=== PATIENT | female | born 1955 | race Caucasian/White ===

== ENCOUNTER → 2016-06-16 | Outpatient (CLI) | payer MEDICARE ==
[~2016-06-16] MED LIST: ASPIRIN EC81 MG PO; CATAFLAM50 MG PO; DELTASONE5 MG PO; DIFLUCAN150 MG PO; FAMOTIDINE 20MG20 MG PO; FLEXERIL10 MG PO; GABAPENTIN300 M1 PO; GABAPENTIN300 MG PO; HYDROCODONE BIT1 T45 PO; HYDROXYZINE HCL25 M1 PO; IBU-8800 MG PO; KEFLEX 500MG.500 MG PO; KLONOPIN 0.5MG0.5 MG PO; LEXAPRO 10 MG T10 MG PO; MEDROL 4MG. DOSE4 MG PO; Mobic7.5 MG PO; NEURONTIN 100100 MG PO; NEURONTIN600 MG PO; NICOTINE PATCH;21 MG TD; NORCO 325 MG-51 TAB PO; PHENYTOIN100 MG PO; PREDNISONE 20MG20 MG PO; TRAMADOL 50MG T50 M1 PO; TRAZADONE HYDR100 MG PO; TYLENOL WITH CO1 TA1 PO; ULTRAM50 MG PO; VISTARIL25 M1 PO; XANAX 1MG TABLET1 MG PO; ZANAFLEX2 M1 PO
[2016-06-16 15:50] LABS: AMPHETAMINES/METAMPHETAMINES NEGATIVE ng/mL (<1000)
[2016-06-24 07:41] LABS: Alprazolam Negative (Cutoff=100); Benzodiazepines Negative ng/mL (Cutoff=100); Clonazepam Negative (Cutoff=100); Flurazepam Negative (Cutoff=100); Lorazepam Negative (Cutoff=100); Midazolam Negative (Cutoff=100); Temazepam Negative (Cutoff=100); Triazolam Negative (Cutoff=100)
== END ==
LOC: LAB 14:05
PROVIDERS: Emergency Medicine
DX: Z79.899 Other long term (current) drug therapy (principal)
CPT/HCPCS: G0480

== ENCOUNTER 2017-01-06 09:24 | Emergency (ER) | payer MEDICARE ==
[~2017-01-06] VITALS: Ht 157.5 cm; Wt 49.0 kg
--- NOTE | 2017-01-06 09:39 | Emergency Room Report ---
History of Present Illness Time Seen by [id number] Presenting Problem in Triage Pt arrived:Walked Presenting Problem:WENT TO SEE PCP FOR ROUTINE VISIT FOR PRESCRIPTIONS; DURING VITAL SIGNS THEY SAID HEART RATE WAS 150; PT HAS A HISTORY OF CHRONIC NECK AND BACK DISCOMFORT; STATES IS A LITTLE SOA BUT IS A SMOKER Onset of symptoms date/time:/ or onset unknown for:MEDICAL HX UNKNOWN Treatment Prior to Arrival: SENT TO ED FOR R/O PEDIATRIC CNS Provided by:PHYSICIAN Sepsis Risk Assessment: Temp: 97.3 B/P: MAP: Pulse: 134 Resp: 22 Recent fever? N Clinical Suspician of Infection? N Mental Status: 1 - Regular (Normal Baseline) Sepsis Risk:Possible Sepsis Risk Have you (or family members/close friends) recently traveled outside the [place]? N If Yes, where/when: Have you had exposure to infectious disease within the past month? TB? Other? Specify: Comment The patient is sent from Dr. Pettit's office for rapid heart rate. She was there today to get refills on her medications. She states that she has had nausea for about 3 months. Poor appetite. She has chest heaviness which comes and goes, currently present. She says she has been short of breath for about 2 months. She has chronic neck and back pain and states that this causes her anxiety. She says that she was previously in pain management, but she says she stopped going to try and see if she could do without pain medication. She says she would like to have her pain medication back, she says she was on [place]. She says she was told maybe we could do that in the emergency room for her. She denies taking any excessive medication. She denies street drug use. She says she drinks alcohol, "but not enough to hurt me". She says she last drank yesterday. ALLERGIES Coded Allergies: No Known Drug Allergies (01/06/17) Home Medications Active Scripts Gabapentin 300 MG PO QID #120 TAB Ref 3 Prov: 03/29/15 TIZANIDINE HCL (Zanaflex) 2 MG PO TID #90 CAP Ref 2 Prov: 06/10/15 Reported Medications Escitalopram Oxalate (Lexapro 10MG) 10 MG PO DAILY History Medical History General CAD? No Angina: No [place]: No Hypertension? No Hyperlipidemia? No CHF? No DVT? No PE? No COPD? No Asthma? No Anemia? No GERD? No Gastric ulcers? No GI Bleed? No Hernia? No Thyroid Problems? No Hypothyroidism? No CVA? No Seizures? Yes Diabetes? No Insulin Dependent: No Insulin Pump: No Home FSBS? No Renal Insuffiency? No End Stage Renal Disease? No UTI? No Stones? No BPH? No GB Disease: No Nephritic Syndrome? No Asplenia? No Hepatitis? No Sickle Cell Disease? No Arthritis? Yes Migraines? No Cataracts? No Glaucoma? No MRSA? No HIV? No TB? No Anxiety? Yes Depression? No Cancer? No More? Yes Additional hx: COLLAPSED LUNG Immunization Hx Ped.Immunizations UTD Yes DT/Tetanus 5-10 Years Ago Flu [id number] Flu Season Pneumonia Received In Past Surgical Hx Previous Surgery?Y THORACOTOMY L LUNG D & C HYSTERECTOMY ECTOPIC PREG LEADITE MAN Hx LMP N/A Family History Family Hx Diabetes No CAD No Hypertension No Hyperlipidemia No Cancer No TB No Social History Smoking Hx Smoker: Current Every Day Smoker Tobacco: Yes Type Cigarettes Packs/day < 1 Pack Alcohol Alcohol: No Review of Systems All Other Systems Reviewed and Negative Constitutional see HPI, denies fever Respiratory shortness of breath Cardiovascular chest pain (Heaviness) Gastrointestinal see HPI, diarrhea, vomiting Musculoskeletal back pain, neck pain Psychiatric/Neurological anxiety Physical Exam Vital Signs Vital Signs Date Time Temp Pulse Resp B/P Pulse O2 O2 Flow FiO2 Ox Delivery Rate 01/06 1135 97.3 101 20 142/75 94 01/06 1031 101 20 159/92 94 01/06 0928 97.3 134 22 138/95 96 General Appearance no apparent distress, anxious appearing Eye Exam - bilateral eye normal exam, bilateral eye PERRL, bilateral eye EOMI Ear, Nose, Throat hearing grossly normal, normal ENT inspection Neck full range of motion, no thyromegaly Respiratory Status Yes: trachea midline, chest symmetrical. No: respiratory distress. Lung Sounds bilateral: normal breath sounds, lungs clear. Cardiovascular no peripheral edema, no gallop, no JVD, no murmur, no rub, normal peripheral pulses, tachycardia Peripheral Pulses Pulses normal Yes Gastrointestinal normal bowel sounds, normal exam, non tender, soft, no organomegaly Back normal inspection Extremities non-tender, normal range of motion, normal inspection, no calf tenderness, no pedal edema Neurologic alert, informatics manager II-XII nml as tested, normal exam, no motor/sensory deficits, oriented x 3 Skin intact, normal color, warm/dry Medical Decision Making LABS/Meds/Orders Pt receiving controlled substance in ED? No [place] was queried for this patient? Yes Comment [id number] 20 rxs. last rx gabapentin on 01/04/17, 8 tablets. Results/Orders Laboratory Tests 01/06/17 1103: Opiates Screen NEGATIVE, Urine Methadone Screen NEGATIVE, Barbiturates NEGATIVE, Phencyclidine Screen NEGATIVE, Amphetamines Screen NEGATIVE, Benzodiazepines Screen NEGATIVE, Cocaine Screen NEGATIVE, Marijuana (THC) Screen NEGATIVE, Urine Color YELLOW, Urine Appearance CLEAR, Urine pH 6.0, Ur Specific [place] <= 1.005 , Urine Protein NEGATIVE, Urine Ketones NEGATIVE, Urine Blood NEGATIVE, Urine Nitrate POSITIVE H, Urine Bilirubin NEGATIVE, Urine Urobilinogen 0.2, Ur Leukocyte Esterase NEGATIVE, Urine RBC NONE, Urine WBC OCC, Ur Squamous Epith Cells NONE, Urine Bacteria 3+, Urine Glucose NEGATIVE 01/06/17 0940: Creatine Kinase 38, CK-MB (CK-2) Rel Index 4.5 H, CK and CKMB Interp 1.7, Troponin I < 0.02, TSH 1.63, Thyroxine (T4) 5.5 01/06/17 0940: Sodium 133 L, Potassium 4.3, Chloride 95 L, Carbon Dioxide 29, BUN 6 L, Creatinine 0.9, Estimated Creat Clear 52, Estimated GFR (MDRD) 64, Glucose 154 H, Calcium 9.1, Total Bilirubin 0.6, AST 29, ALT 20, Alkaline Phosphatase 99, Total Protein 7.3, Albumin 3.7, Globulin 3.6 H, Albumin/Globulin Ratio 1.0 L, D-Dimer < 100, WBC 8.1, RBC 5.48 H, Hgb 17.5 H, Hct 54.3 H, MCV 98.9 H, RDW 14.1, Plt Count 270, MPV 7.5, Gran % 59.6, Gran # 4.8, Lymphocytes % 31.6, Monocytes % 6.6, Eosinophils % 1.3, Basophils % 0.8, Lymphocytes # 2.6, Monocytes # 0.5, Eosinophils # 0.1, Basophils # 0.1, PUBS MCHC 32.0, MCH 31.7 H Current Medication Orders Sig/Valerie Start time Last Medication Dose Route Stop Time Status Admin Sodium Chloride 1,000 ML .STK-MED ONE 11/08 1004 DC IV Sodium Chloride 1,000 ML .Q1H1M 01/06 1000 DC 01/06 IV 01/06 1100 1007 Sodium Chloride 10 ML PRN PRN 01/06 0945 DCD IV 01/07 933 Orders Procedure Date/time Status CULTURE, URINE 01/06 1103 Active D-DIMER 01/06 951 Complete URINALYSIS/COMPLETE 01/07 936 Complete THYROID STIMULATING HORMONE 01/07 936 Complete THYROXINE (T4) 01/07 936 Complete DRUG ABUSE SCREEN (TRIAGE) 01/07 936 Complete CARDIAC ENZYMES 01/07 936 Complete ELECTROCARDIOGRAM REQUEST 01/06 933 Active IV SALINE LOCK 01/06 933 Active CBC WITH AUTO DIFF 01/06 933 Complete CHEM 12 PROFILE 01/06 933 Complete 12 LEAD EKG-TOBIAS (INITIAL) 01/06 UNK Active CM/EKG CM/EKG Comments EKG interpreted by Douglas Looney MD: Rhythm: sinus tachycardia Rate: 135 [place]: normal Ectopy: none Conduction: normal ST Segment Changes: none T Wave Changes: none Q Waves: none No evidence of acute ischemia or injury XRAY/CT/US XRAY/CT/US XRAY chest Comment X-ray interpreted by Douglas Looney M.D.: Postsurgical changes with suture line in LEFT lower lobe and blunting of LEFT costophrenic angle, chronic. No acute changes seen. Progress - 11:28 AM: Heart rate down to 104. I feel the patient can be discharged to follow -up with her primary care physician. Departure Departure Disposition DC Home or Self Care(routine) Clinical Impression Primary Impression: Sinus tachycardia Condition STABLE Patient Instructions DI for Tachycardia Additional Instructions Follow-up with your primary care physician for further evaluation and for medication refills. ED Critical Care Critical Care No at 1351
--- OUTSIDE RECORDS SUMMARY | 2017-01-06 09:42 | External Medical Summary Rpt ---
Author Author [employer], [employer] Organization [employer] Address Unknown Phone Unavailable Results Benzodiazepines Confirm, Urine Observa Value Referen Units Interpr Notes Date tion ce etation Range Benzodi Positiv Cutoff= ng/mL Abnorma No Sep 25 azepine e 100 l informa 2017 s tion in 11:45 [Presen source AM ce] in data Urine Alprazo Negativ Cutoff= No No No Sep 25 sampson e 100 informa informa informa 2016 [Presen tion in tion in tion in 11:45 ce] in source source source AM Urine data data data Clonaze Positiv . No Abnorma No Sep 25 lawrence e informa l informa 2016 [Presen tion in tion in 11:45 ce] in source source AM Urine data data Clonazepa Cutoff=10 ng/mL No Clonazepa Sep 25 m 0 informati m 2017 [Mass/vol on in detected; 11:45 AM ume] in source this Urine by data finding Confirm is method consisten t with use ofmedicat ions that include Klonopin, Rivotril, or generic formulati ons.Drugs listed are represent ative of common sources of the compoundd etected and are not intended to include all possible sources. Temazep Negativ Cutoff= No No No Sep 25 am e 100 informa informa informa 2016 [Presen tion in tion in tion in 11:45 ce] in source source source AM Urine data data data by Confirm method Triazol Negativ Cutoff= No No No Sep 25 am e 100 informa informa informa 2017 [Presen tion in tion in tion in 11:45 ce] in source source source AM Urine data data data Midazol Negativ Cutoff= No No No Sep 25 am e 100 informa informa informa 2017 [Presen tion in tion in tion in 11:45 ce] in source source source AM Urine data data data by Confirm method Nordiaz Negativ Cutoff= No No No Sep 25 epam e 100 informa informa informa 2017 [Presen tion in tion in tion in 11:45 ce] in source source source AM Urine data data data Please Comment . No No Drug-te Sep 25 Note: informa informa st 2016 tion in tion in results 11:45 source source should AM data data be interpr eted in the context of clinica linform ation. Patient metabol ic variabl es, specifi c drug radiation protection specialist ry, andspec imen charact eristic s can affect test outcome . Technic alconsu ltation is availab le if a test result is inconsi stent with anexpec dilshad outcome . (email- ameya [email or web address] [email or web address] or call [phone] )Drug brands, if listed herein, are tradema rks of their respect jenaro dailey.Perf ormed at: [facility] [id number] [place], [place] [id number]Lab Directo r: Raj Sutton MD, Phone: [phone] Oxazepa Negativ Cutoff= No No No Sep 25 m e 100 informa informa informa 2016 [Presen tion in tion in tion in 11:45 ce] in source source source AM Urine data data data Fluraze Negativ Cutoff= No No No Sep 25 lawrence e 100 informa informa informa 2016 [Presen tion in tion in tion in 11:45 ce] in source source source AM Urine data data data Lorazep Negativ Cutoff= No No No Sep 25 am e 100 informa informa informa 2016 [Presen tion in tion in tion in 11:45 ce] in source source source AM Urine data data data Drugs identified in Urine by Screen method Observa Value Referen Units Interpr Notes Date tion ce etation Range Positive urine drug screen samples are stored for 7 days. Contact the Lab if confirmation of positives is needed. Ampheta NEGATIV <1000 ng/mL No No Sep 25 mine E informa informa 2016 [Presen tion in tion in 11:45 ce] in source source AM Urine data data by Screen method Barbitura <200 ng/mL No No Sep 25 ita informati informati 2016 [Mass/vol on in on in 11:45 AM ume] in source source Urine by data data Screen method Benzodiaz 200 ng/mL ng/mL No No Sep 25 epines informati informati 2017 [Mass/vol on in on in 11:45 AM ume] in source source Serum or data data Plasma by Screen method Cocaine <300 ng/g No No Sep 25 [Mass/vol informati informati 2016 ume] in on in on in 11:45 AM Unspecifi source source ed data data specimen Methadone <300 ng/mL No No Sep 25 informati informati 2016 [Mass/vol on in on in 11:45 AM ume] in source source Unspecifi data data ed specimen Opiates <300 ng/mL No No Sep 25 [Mass/vol informati informati 2016 ume] in on in on in 11:45 AM Unspecifi source source ed data data specimen Phencycli <25 ng/mL No No Sep 25 dine informati informati 2016 [Mass/vol on in on in 11:45 AM ume] in source source Unspecifi data data ed specimen 11-Hydr NEGATIV <50 ng/mL No No Sep 25 oxy E informa informa 2017 delta-9 tion in tion in 11:45 source source AM tetrahy data data drocann abinol [Presen ce] in Unspeci fied specime n
--- OUTSIDE RECORDS SUMMARY | 2017-01-06 09:42 | External Medical Summary Rpt | CCD ---
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, CERVICAL REGION M54.2 CERVICALGIA Z79.899 OTHER FDC (CURRENT) DRUG THERAPY Allergies, Adverse Reactions, Alerts Type Allergy to substance Adverse Reaction to Substance Substance Reaction Severity NO KNOWN ALLERGIES Unknown Unknown Vital Signs 07-22-2012 18:55 Name Value Interpretat Reference Comment ion Range Body 98.1 [degF] Temperature BP 71 mm[Hg] Diastolic BP Systolic 127 mm[Hg] Heart 71 /min Rate/Pulse O2% 97 % Respiratory 18 /min Rate 07-22-2012 18:54 Name Value Interpretat Reference Comment ion Range Body 98.1 [degF] Temperature BP 71 mm[Hg] Diastolic BP Systolic 127 mm[Hg] Heart 71 /min Rate/Pulse O2% 97 % Respiratory 18 /min Rate Encounters Encounter Start End Date Code Location Performer Type Date Emergency REBECA Oreilly (ER) 3 17:35 3 18:55 Shanell HULL [facility]
--- OUTSIDE RECORDS SUMMARY | 2017-01-06 09:42 | External Medical Summary Rpt | CCD ---
Demographics Preferred Language Scottish Marital Status Unknown Anglican Affiliation Unknown Race Unknown Ethnic Group Unknown Author Author , SYDNIE COLEMAN Address Unknown Phone Immunization No patient found.
--- OUTSIDE RECORDS SUMMARY | 2017-01-06 09:42 | External Medical Summary Rpt | CCD ---
Demographics Preferred Language Sammarinese Marital Status Unknown Muslim Affiliation Unknown Race Unknown Ethnic Group Unknown Author Author , SYDNIE COLEMAN Address Unknown Phone Immunization No patient found.
--- OUTSIDE RECORDS SUMMARY | 2017-01-06 09:42 | External Medical Summary Rpt | CCD ---
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
--- OUTSIDE RECORDS SUMMARY | 2017-01-06 09:42 | External Medical Summary Rpt ---
[...] metabol ic variabl es, specifi c drug chemist biological ry, andspec imen charact eristic s can affect test outcome . Technic alconsu ltation is availab le if a test result is inconsi stent with anexpec dilshad outcome . (email- ameya [email or web address] [email or web address] or call [phone] )Drug brands, if listed herein, are tradema rks of their respect jenaro dailey.Perf ormed at: [facility] [id number] [place], [place] [id number]Lab Directo r: Raj Sutton MD, Phone: [phone] Oxazepa Negativ Cutoff= No No No Sep [...]
[2017-01-06 09:48] LABS: LYMPH # 2.6 K/mm3 (0.7-4.5); LYMPH % 31.6 % (10-50.0)
[2017-01-06 09:56] LABS: HEMOGLOBIN 17.5 g/dL (12.2-16.2)
--- NOTE | 2017-01-06 10:10 | RADIOLOGY REPORT PS360 ---
CHEST-PORTABLE HISTORY: Tachycardia INCR HR ORDERING PHYSICIAN: Douglas Looney MD PATIENT AGE: 61 years COMPARISON: 09/20/2014 FINDINGS: The cardiomediastinal silhouette and pulmonary vascularity are within normal limits. A suture line is present in the left lower lobe with there is chronic blunting of left CP angle. No lobar consolidation or collapse. There are old right-sided rib fractures.. No acute bony abnormalities. IMPRESSION: No change with no acute finding. Chronic changes left lung base
[2017-01-06 11:09] LABS: URINE BILIRUBIN - DIPSTICK NEGATIVE (NEG); URINE BLOOD NEGATIVE (NEG)
[2017-01-06 11:25] LABS: AMPHETAMINES/METAMPHETAMINES NEGATIVE ng/mL (<1000)
[2017-01-06 11:35] VITALS: BP 142/75
== END 2017-01-06 11:36 | disposition home or self-care (01) ==
LOC: ER 09:24
PROVIDERS: Emergency Medicine
DX: R00.0 Tachycardia, unspecified (principal); M54.2 Cervicalgia; F17.210 Nicotine dependence, cigarettes, uncomplicated; R06.02 Shortness of breath; F10.10 Alcohol abuse, uncomplicated; R56.9 Unspecified convulsions; F41.9 Anxiety disorder, unspecified